=== PATIENT | female | born 1965 | race Caucasian/White ===

== ENCOUNTER 2018-06-08 21:14 | Emergency (ER) | payer MEDICARE, OTHER, MEDICAID ==
[~2018-06-08] VITALS: Ht 152.4 cm; Wt 81.7 kg
[2018-06-08] MEDS ORDERED: ASPIR 8181 MG (21:28)
[2018-06-08] MEDS ORDERED: CLOZAPINE100 M1 ×2 (21:28→21:29)
[2018-06-08] MEDS ORDERED: JANUVIA100 MG (21:29)
[2018-06-08] MEDS ORDERED: LISINOPRIL5 MG (21:29)
[2018-06-08] MEDS ORDERED: PHILLIPS' COLO1 EACH (21:30)
[2018-06-08] MEDS ORDERED: UNICOMPLEX M TA1 TA1 (21:30)
[2018-06-08] MEDS ORDERED: PAXIL10 MG (21:30)
[2018-06-08] MEDS ORDERED: SENNA-DOCUSATE1 EAC1 (21:31)
[2018-06-08] MEDS ORDERED: FISH OIL 1,001000 M2 (21:32)
[2018-06-08] MEDS ORDERED: SIMVASTATIN40 MG (21:32)
[2018-06-08] MEDS ORDERED: TRAZODONE HCL50 MG ×2 (21:32)
[2018-06-08] MEDS ORDERED: OYST-CAL-500500 MG (21:33)
[2018-06-08] MEDS ORDERED: METFORMIN HCL500 MG (21:33)
[2018-06-08 21:44] LABS: ABSOLUTE LYMPHOCYTES 2.5 thou/uL (0.8-5.3); ABSOLUTE MONOCYTES 0.3 thou/uL (0.0-1.2); ABSOLUTE NEUTROPHILS 2.2 thou/uL (1.6-8.1); BASOPHILS 0.5 %; HEMOGLOBIN 11.9 gm/dL (12.0-15.0); LYMPHOCYTES 49.3 %; MCH 29.6 pg (26.0-34.0); MCHC 33.2 g/dL (28.0-37.0); MCV 89.1 fL (80.0-100.0); MONOCYTES 6.1 %; MPV 10.7 fl. (7.2-11.1); NUCLEATED RBCS 0 /100WBC; PLATELET COUNT* 159 thou/uL (150-400); POLYS 44.1 %; RBC 4.03 mil/uL (4.20-5.00); RDW-CV 14.1 % (10.5-14.5)
[2018-06-08 21:56] LABS: ANION GAP 4 mmol/L (7-16); BUN 13 mg/dL (7-18); CALCIUM 8.7 mg/dL (8.5-10.1); CHLORIDE 103 mmol/L (98-107); CO2 32 mmol/L (21-32); CREATININE 0.9 mg/dL (0.6-1.3); GLUCOSE 166 mg/dL (70-99); POTASSIUM 3.9 mmol/L (3.5-5.1); SODIUM 139 mmol/L (136-145)
[2018-06-08 22:03] LABS: ALBUMIN 3.3 g/dL (3.4-5.0); ALKALINE PHOSPHATASE 78 U/L (46-116); SGOT 31 U/L (15-37); SGPT 53 U/L (30-65); TOTAL BILIRUBIN 0.3 mg/dL (<0.1-1.0); TOTAL PROTEIN 6.8 g/dL (6.4-8.2); TROPONIN-I LEVEL <0.06 ng/mL (<0.06)
[2018-06-08 22:10] LABS: APTT 31.2 Seconds (25.0-31.3); PROTIME 10.3 Seconds (9.20-11.50)
[2018-06-08] MEDS ORDERED: ACYCLOVIR 400400 MG PO (22:31)
[2018-06-08] MEDS ORDERED: PREDNISONE 20 M20 M1 PO (22:31)
[2018-06-08 22:55] VITALS: BP 165/73
--- NOTE | 2018-06-09 12:58 | EKG ---
[place] [address] ELECTROCARDIOGRAM REPORT Name: ORIANA FREY Room: [facility]#: [id number] Admission: 06/08/18 Attend Phys: Discharge: 06/08/18 Date of : 61 Report #: [id number] THIS REPORT FOR: //name// [facility] ED Test Date: 2018-06-08 Test Time: 21:47:57 Pat Name: ORIANA FREY Department: Room: Gender: F [employer]: JOAN : 1965 Requested By: Magan Mandujano Order Number: [id number] MD: Vincent Milan Measurements Intervals [place] Rate: 92 P: 11 NH: 140 QRS: 43 QRSD: 97 T: 26 QT: 365 QTc: 452 Interpretive Statements Sinus rhythm Borderline T abnormalities, anterior leads Baseline wander in lead(s) V4 No previous ECG available for comparison Electronically Signed On 06-09-2018 12:57:57 CDT by Vincent Milan [email or web address] <ELECTRONICALLY SIGNED> By: Vincent Milan MD, [facility] 06/09/18 1257 [id number] 46 Vincent Milan MD, FACC /EPI
== END 2018-06-08 22:57 | disposition home or self-care (01) ==
LOC: M.ERS 21:14
PROVIDERS: Family Medicine
DX: G51.0 Bell's palsy (principal); I10 Essential (primary) hypertension; E11.9 Type 2 diabetes mellitus without complications; Z88.8 Allergy status to other drugs, medicaments and biological substances; Z88.1 Allergy status to other antibiotic agents

== ENCOUNTER 2018-09-01 12:22 | Emergency (ER) | payer MEDICARE, OTHER, MEDICAID ==
[~2018-09-01] VITALS: Ht 157.5 cm; Wt 79.8 kg
[~2018-09-01 12:22] MED LIST: ACYCLOVIR 400400 MG PO; ASPIR 8181 MG; CLOZAPINE100 M1; FISH OIL 1,001000 M2; JANUVIA100 MG; LISINOPRIL5 MG; METFORMIN HCL500 MG; OYST-CAL-500500 MG; PAXIL10 MG; PHILLIPS' COLO1 EACH; PREDNISONE 20 M20 M1 PO; SENNA-DOCUSATE1 EAC1; SIMVASTATIN40 MG; TRAZODONE HCL50 MG; UNICOMPLEX M TA1 TA1
[2018-09-01] MEDS ORDERED: PROBIOTIC1 EAC1 PO (12:37)
[2018-09-01] MEDS ORDERED: LOVAZA1000 MG PO (12:37)
[2018-09-01] MEDS ORDERED: JANUVIA100 MG PO (12:39)
[2018-09-01 14:34] VITALS: BP 120/75
== END 2018-09-01 14:35 | disposition home or self-care (01) ==
LOC: M.ERS 12:22
DX: M70.62 Trochanteric bursitis, left hip (principal); I10 Essential (primary) hypertension; E11.9 Type 2 diabetes mellitus without complications; Z88.8 Allergy status to other drugs, medicaments and biological substances; Z88.1 Allergy status to other antibiotic agents; Y93.89 Activity, other specified

== ENCOUNTER → 2019-03-16 | Outpatient (CLI) | payer MEDICARE, OTHER, MEDICAID ==
[~2019-03-16] MED LIST changes: +JANUVIA100 MG PO; +LOVAZA1000 MG PO; +PROBIOTIC1 EAC1 PO
[2019-03-16 10:11] LABS: ABSOLUTE LYMPHOCYTES 2.1 thou/uL (0.8-5.3); ABSOLUTE MONOCYTES 0.4 thou/uL (0.0-1.2); ABSOLUTE NEUTROPHILS 2.5 thou/uL (1.6-8.1); BASOPHILS 0.4 %; HEMATOCRIT 40.9 % (37.0-47.0); HEMOGLOBIN 13.6 gm/dL (12.0-15.0); LYMPHOCYTES 41.8 %; MCH 28.7 pg (26.0-34.0); MCHC 33.4 g/dL (28.0-37.0); MCV 85.9 fL (80.0-100.0); MONOCYTES 7.1 %; MPV 11.2 fl. (7.2-11.1); NUCLEATED RBCS 0 /100WBC; PLATELET COUNT* 146 thou/uL (150-400); POLYS 50.7 %; RBC 4.75 mil/uL (4.20-5.00); RDW-CV 14.3 % (10.5-14.5); WBC 4.9 thou/uL (4.0-11.0)
[2019-03-16 10:37] LABS: ALBUMIN 3.7 g/dL (3.4-5.0); CALCIUM 9.5 mg/dL (8.5-10.1); CREATININE 0.7 mg/dL (0.6-1.3); POTASSIUM 3.9 mmol/L (3.5-5.1); TOTAL BILIRUBIN 0.5 mg/dL (<0.1-1.0); TOTAL PROTEIN 7.6 g/dL (6.4-8.2)
--- NOTE | 2019-03-17 22:02 | HEMONC ---
[address] [address] HEMATOLOGY ONCOLOGY NOTE Name: TKORIANA Bahena Room: [facility].#: [id number] Admission: 03/16/19 Attend Phys: Juan Phelan MD Discharge: Date of : 61 Report #: [id number] THIS REPORT FOR: //name// CC: NANCY Boland DATE OF SERVICE: 03/16/2019 REFERRING AND PRIMARY CARE PHYSICIAN: Nancy Rodriguez DO REASON FOR CONSULTATION: Night sweats and family history of non-Hodgkin's lymphoma. SUBJECTIVE: A 53-year-old female who has been referred after she had one year of drenching night sweats. The patient reported that she might have some episodes of sweats during the daytime; however, it is more predominantly in the evening time to the point that she feels that she is soaked and she has to change her clothes. The patient denies any fevers, however. No weight changes or severe fatigue. She reported decreased appetite most recently in the last 3 weeks with new intermittent episodes of nausea and vomiting. The patient denies any palpable lymphadenopathy. Her father and uncle have been diagnosed with non-Hodgkin lymphoma, they both received chemotherapy as a treatment for that. The patient reported that she had the last periods in her late 30s. Since that time, she did not have any major menopausal symptoms. REVIEW OF SYSTEMS: All systems were reviewed. It was negative except the above. PAST MEDICAL HISTORY: Hypertension and diabetes mellitus. The patient is on multiple psychiatric medications. 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 MEDICATIONS: Metformin 1000 mg p.o. daily, clozapine 100 mg p.o. daily, aspirin 81 mg p.o. daily, Januvia 100 mg p.o. daily, lisinopril 5 mg p.o. daily, and simvastatin 40 mg p.o. daily. SOCIAL HISTORY: She is an ex-smoker. She smoked between the age of [age] 1-2 packs. She drinks alcohol occasionally. ALLERGIES: Per chart. PHYSICAL EXAMINATION: VITAL SIGNS: Today, blood pressure is 118/81, pulse is 94, respirations 20, [place] [address] HEMATOLOGY ONCOLOGY NOTE Name: ORIANA FREY Room: [facility]#: [id number] Admission: 03/16/19 Attend Phys: Juan Phelan MD Discharge: Date of : 61 Report #: [id number] temperature is 97.6, and sat is 96% on room air. GENERAL: The patient was sitting in chair, was not in acute distress. LUNGS: Clear to auscultation bilaterally. HEART: Regular rate and rhythm. S1, S2 within normal limits. ABDOMEN: Soft, nontender, nondistended, bowel sounds positive. EXTREMITIES: No edema, no cyanosis, no clubbing. LYMPHATICS: No palpable lymphadenopathy in the cervical or axillary area. No hepatosplenomegaly. LABORATORY DATA: Most recent labs on 02/26/2019, WBC 6.0, hemoglobin 13.3, and platelets 166. ASSESSMENT AND PLAN: A 53-year-old female who has a strong family history of non-Hodgkin's lymphoma presenting with drenching night sweats. She had decreased appetite with intermittent unexplained nausea and vomiting. RECOMMENDATIONS: 1. We would like to obtain a CBC, CMP, LDH. 2. We will obtain a CT scan of neck, chest, abdomen and pelvis to rule out any possibility of lymphadenopathy. We will consider bone marrow biopsy, if there are any abnormalities in her CT scans or CBC. Follow up in 2 weeks. <ELECTRONICALLY SIGNED> By: Juan Phelan MD 03/17/19 2202 [id number] Phelan MD /nt
== END ==
LOC: M.RTH 05:15
PROVIDERS: Internal Medicine
DX: R61 Generalized hyperhidrosis (principal); I10 Essential (primary) hypertension; E11.9 Type 2 diabetes mellitus without complications; Z80.7 Family history of other malignant neoplasms of lymphoid, hematopoietic and related tissues

== ENCOUNTER → 2019-03-22 | Outpatient (CLI) | payer MEDICARE, OTHER, MEDICAID | LOC: M.CT 07:36 | DX: N20.0 Calculus of kidney (principal); K76.0 Fatty (change of) liver, not elsewhere classified; C85.98 Non-Hodgkin lymphoma, unspecified, lymph nodes of multiple sites ==

== ENCOUNTER → 2019-03-30 | Outpatient (CLI) | payer MEDICARE, OTHER, MEDICAID ==
--- NOTE | 2019-04-05 13:33 | HEMONC ---
[address] [address] HEMATOLOGY ONCOLOGY NOTE Name: ORIANA FREY Room: [facility]#: [id number] Admission: 03/30/19 Attend Phys: Juan Phelan MD Discharge: Date of : 61 Report #: [id number] THIS REPORT FOR: //name// CC: BENEDICTO Boland DATE OF SERVICE: 03/30/2019 REASON FOR CONSULTATION: Strong family history of non-Hodgkin's lymphoma. SUBJECTIVE: The patient presented today to have followup on her workup from previous visit. The patient had an imaging including CT scan of the neck, chest, abdomen and pelvis which was negative for any suspected lymphoma; however, we found that the patient had very tiny nodules in the lung consistent with small granulomas or scar. At the same time, she had a fatty liver. In addition to that, I reviewed her CBC, which came back within normal range. The patient does not have any evidence of cytopenias. Her WBC within normal range. I discussed these findings with the patient. Most likely, the patient does not have any evidence of active lymphoma at this point. REVIEW OF SYSTEMS: All systems reviewed. It was negative except the above. PAST MEDICAL, SOCIAL AND FAMILY HISTORY: Unchanged from previous visit. MEDICATIONS: List has been reviewed. PHYSICAL EXAMINATION: VITAL SIGNS: Today, blood pressure is 123/83, pulse is 88, respirations 18, temperature is 97.6, sat is 97% on room air. GENERAL: The patient was sitting in the chair, was not in acute distress. She is awake, alert and oriented x 3. Cranial nerves are grossly intact. ASSESSMENT AND PLAN: A 53-year-old female who has been referred due to strong family history of non-Hodgkin's lymphoma. However, she reported night sweats and fatigue. Her workup including CT scan of neck, chest abdomen and pelvis was negative. Her CBC within normal range. I doubt that the symptoms of night sweats will be explained by lymphoma at this point since her workup is negative; however, her symptoms could be explained by menopause. We will defer further workup and treatment to primary care physician. <ELECTRONICALLY SIGNED> By: Juan Phelan MD 04/05/19 1333 [id number] Phelan MD /nt
== END ==
LOC: M.RTH 05:48
DX: Z08 Encounter for follow-up examination after completed treatment for malignant neoplasm (principal); R53.83 Other fatigue; R61 Generalized hyperhidrosis; Z80.7 Family history of other malignant neoplasms of lymphoid, hematopoietic and related tissues